=== PATIENT | female | born 1955 | race Caucasian/White ===

== ENCOUNTER 2021-06-09 13:50 | Emergency (ER) | payer MEDICARE, SELFPAY ==
--- NOTE | ~2021-06-09 | XR_ITS ---
EXAMINATION: XR lumbar spine 2-3V DATE: 06/09/2021 15:56 INDICATION: Low back pain. Injury. TECHNIQUE: 3 views of lumbar spine were obtained. COMPARISON: None. FINDINGS: There is 3 degrees levocurvature of lumbar spine. There is a compression fracture of L1 wit h 1/5 loss of height. There is mildly decreased disc height at L3-L4 and severely decreased disc heig ht at L5-S1 with endplate remodeling. There is multilevel mild to moderate facet joint osteoarthritis . IMPRESSION: 1. Age-indeterminate L1 compression fracture. 2. Severe lower lumbar spondylosis. Reviewed, dictated and finalized at location A.
--- NOTE | ~2021-06-09 | XR_ITS ---
EXAMINATION: XR_RIBSBI_CR DATE: 06/09/2021 14:45 INDICATION: Bilateral rib pain. Fall. TECHNIQUE: 2 views of the right ribs and 2 views of the left ribs on a total of 6 radiographs were ob tained. COMPARISON: None. FINDINGS: The chest demonstrates clear lungs without pneumonia, pleural effusion, or pneumothorax. Th e heart size is normal. IMPRESSION: 1. No rib fracture. Reviewed, dictated and finalized at location A. IMPRESSION: 1. No rib fracture.
--- NOTE | ~2021-06-09 | XR_ITS ---
EXAMINATION: XR thoracic spine 2V DATE: 06/09/2021 14:45 INDICATION: Back pain. Fall. TECHNIQUE: 2 views of thoracic spine were obtained. COMPARISON: None. FINDINGS: There is 6 degrees levocurvature of thoracic spine. Vertebral body heights and intervertebr al disc heights are normal. There are small endplate osteophytes at multiple levels. IMPRESSION: 1. Mild thoracic spondylosis. Reviewed, dictated and finalized at location A.
[2021-06-09 14:19] VITALS: BP 113/63; PULSE 98; RESP 18; TEMP 37.3; O2SAT 99
--- NOTE | 2021-06-09 15:48 | PC.NURSE ---
Pt taken to radiology
--- NOTE | 2021-06-09 17:22 | ED.FALL ---
HPI - Fall General Chief Complaint: Fall Stated Complaint: fall - back injury Time Seen by Provider: 06/09/21 15:33 History of Present Illness HPI Narrative: Patient presents with a ground-level fall. Reports she tripped on some concrete and fell onto her back. She had immediate pain and wanted to come in for evaluation she was concerned she may have broken her back. She denies any focal areas of numbness or weakness she denies any saddle anesthesia she denies any loss of bowel or bladder function. Reports a history of back pain denies striking her head she denies any loss of consciousness. ports she had an episode of glazed over eyes thought maybe she had passed out. Patient was standing during this event patient denied any prodrome prior to her fall or after a fall such as chest pain, lightheadedness, shortness of breath, dizziness Related Data Home Medications Medication Instructions Recorded Confirmed levothyroxine 25 mcg PO DAILY 06/09/21 06/09/21 pravastatin 40 mg PO DAILY 06/09/21 06/09/21 Allergies Allergy/AdvReac Type Severity Reaction Status Date / Time erythromycin base AdvReac Vomiting Verified 06/09/21 15:37 levofloxacin [From Levaquin] AdvReac Dry Mouth Verified 06/09/21 15:36 Review of Systems Review of Systems: CONSTITUTIONAL: Denies fever, chills, or sweats. EYES: Denies visual changes, redness, or discharge. ENT: Denies rhinorrhea, congestion, sore throat, or otalgia. CARDIOVASCULAR: Denies chest pain, palpitations, or edema. RESPIRATORY: Denies cough or dyspnea. GASTROINTESTINAL: Denies abdominal pain, nausea, vomiting, or diarrhea. GENITOURINARY: Denies dysuria or hematuria. SKIN: Denies rash or itching. MUSCULOSKELETAL: Denies joint pain, or myalgia. NEUROLOGIC: Denies headache, numbness, dizziness, or weakness. PSYCHIATRIC: Denies anxiety or depression. All systems reviewed & are unremarkable except as noted in HPI and below PMFSH Social History Social History Gender identity (if verbalized by the patient): Female Exam Narrative: GENERAL: Well-appearing, well-nourished, and in no acute distress. HEAD: Normocephalic, atraumatic. EYES: PERRLA and EOMI. ENT: Nares clear, no rhinorrhea or epistaxis. Mucous membranes moist. NECK: Supple. No masses. No JVD BACK: Patient with diffuse low back pain no focal bony tenderness on the midline. Pain is predominantly on the right paraspinal muscle area in the L-spine EXTREMITIES: Normal range of motion. No edema. SKIN: Warm, dry, no rash. NEURO: 5 out of 5 strength in the bilateral lower extremities sensation intact to light touch. Alert and oriented x3. PSYCH: Normal mood and affect. Course Reevaluation(s) Reevaluation #1: Imaging reviewed with patient there is no focal tenderness on L1 compression fracture likely unrelated to today's events. Patient made aware of imaging findings and outpatient plan Date: 06/09/21 Time: 17:26 Vital Signs Vital signs: Vital Signs Temperature 37.3 C 06/09/21 14:19 Pulse Rate 98 06/09/21 14:19 Respiratory Rate 18 06/09/21 14:19 Blood Pressure 113/63 06/09/21 14:19 Pulse Oximetry 99 06/09/21 14:19 Temperature 37.3 C 06/09/21 14:19 Pulse Rate 75 06/09/21 18:00 Respiratory Rate 18 06/09/21 18:00 Blood Pressure 134/65 06/09/21 18:00 Pulse Oximetry 100 06/09/21 18:00 MDM - Fall MDM Narrative Medical decision making narrative: H&P as above, vss, pt looks clinically well, exam without focal neurological deficits, imaging without acute findings additional labs/img considered, symptomatic relief available as needed, on reevaluation pt continues to looks clinically well. Suspect soft tissue injury, dns fracture, cauda equina, conus medullaris, cord compromise. plan to tx/monitor as op w/ pcm f/u findings/plan discussed with pt, pt agree/comfortable with plan, return precautions given Imaging Data Radiologist's impressio
[2021-06-09 18:00] VITALS: BP 134/65; PULSE 75; RESP 18; O2SAT 100
== END 2021-06-09 18:05 | disposition home or self-care (01) ==
PROVIDERS: Emergency Provider Emergency Medicine
DX: M54.5 Low back pain (principal); W18.39XA Other fall on same level, initial encounter
CPT/HCPCS: 71110; 72070; 72100; 99284